=== PATIENT | female | born 1980 | race Caucasian/White ===

== ENCOUNTER 2017-07-29 19:26 | Emergency (ER) | payer OTHER, MEDICAID ==
[2017-07-29 19:43] VITALS: BP 165/100; PULSE 97; RESP 18; TEMP 98.1; O2SAT 96
[2017-07-29] MEDS ORDERED: TDAP ADULT 0.5 ML INJ (BOOSTRIX) IM ONE (19:43)
[2017-07-29] MEDS ORDERED: IBUPROFEN 600 MG TAB PO ONE (19:48)
--- NOTE | 2017-07-29 20:03 | EDPHY ---
H & P Time Seen by Provider: 07/29/17 19:30 HPI/ROS: CHIEF COMPLAINT: Dog bite HISTORY OF PRESENT ILLNESS: Patient states she owns a Rottweiler that attempted to go after her son. She was bit multiple places to both upper extremities around 630 this evening. Unknown last tetanus. Complaining of pain and bruising to left forearm as well as multiple puncture wounds and abrasions. Also with old wound to bridge of nose that she sustained yesterday verses a board. No other complaints. Review of systems otherwise negative except for what is mentioned in HPI. General Appearance: Alert, no distress. Eyes: Pupils equal and round, extraocular motions intact. Abrasion across the bridge of nose. ENT, Mouth: Atraumatic, normal dentition. Respiratory: No respiratory distress, lungs are clear to auscultation. Cardiovascular: Regular rate and rhythm. Gastrointestinal: Abdomen is soft and nontender, no masses, bowel sounds normal. Neurological: Awake alert, cranial nerves intact Skin: Warm and dry, no rashes. Musculoskeletal: Neck is supple nontender. Normal movement, sensation all 4 extremities. Left forearm with puncture wound over ulnar aspect, several abrasions to hand and index finger with puncture wound to medial volar aspect of the hand. Distal sensation and movement intact. Normal strength in medial radial ulnar distribution. Right upper extremity with puncture wound over wrist as well as several abrasions. Distal CMS intact. Psychiatric: Patient is oriented X 3, there is no agitation. Medical/surgical history: Noncontributory Social history: Lives with family Smoking Status: Current some day smoker Constitutional: Initial Vital Signs Temperature (C) 36.7 C 07/29/17 19:40 Heart Rate 97 07/29/17 19:40 Respiratory Rate 18 07/29/17 19:40 Blood Pressure 165/100 H 07/29/17 19:40 O2 Sat (%) 96 07/29/17 19:40 O2 Delivery Mode Room Air Allergies/Adverse Reactions: codeine Allergy (Intermediate, Verified 07/29/17 19:40) Vomiting Home Medications: Medication Instructions Recorded Adderall Xr 10 mg Capsule 03/10/16 Cymbalta 03/10/16 Ibuprofen [Motrin (*)] 600 mg PO Q6 PRN #30 tab 03/10/16 Amoxicillin/Clavulanate Pot 875 mg PO BID #14 tab 07/29/17 [Augmentin 875 MG TAB (*)] Medical Decision Making - Diagnostics Imaging Results: Imaging Impressions Forearm X-Ray 07/29/17 19:46 Impression: No acute osseous findings. Wrist X-Ray 07/29/17 19:46 Impression: Soft tissue irregularity with no acute osseous findings. Imaging: I viewed and interpreted images myself ED Course/Re-evaluation: Tetanus vaccination given, wounds cleaned and dressed. Differential Diagnosis: Differentia diagnosis includes but is not limited to fracture, dislocation, neurovascular injury, laceration, abrasion, foreign body. After evaluation no foreign body or fracture noted. Wounds will be left open to heal by secondary intention. Prescription for Augmentin written for prophylaxis. Call made to animal Control however when they tried to contact patient they discovered that the address and phone number patient gave to admissions is incorrect. - Data Points Medications Given: Discontinued Medications Amoxicillin/Clavulanate Potassium (Augmentin 875mg) 875 mg PO EDNOW ONE PRN Reason: Protocol Stop: 07/29/17 20:16 Last Admin: 07/29/17 20:20 Dose: 875 mg Diphtheria/Tetanus/Acell Pertussis (Boostrix) 0.5 ml IM .ONCE ONE Stop: 07/29/17 19:44 Last Admin: 07/29/17 20:03 Dose: 0.5 ml Ibuprofen (Motrin) 600 mg PO EDNOW ONE Stop: 07/29/17 19:49 Last Admin: 07/29/17 20:02 Dose: 600 mg Departure - Departure Disposition: Home, Routine, Self-Care Clinical Impression: Dog bite of arm Qualifiers: Encounter type: initial encounter Laterality: unspecified laterality Qualified Code(s): S41.159A - Open bite of unspecified upper arm, initial encounter Condition: Good Instructions: Animal Bite (ED) Additional Instructions: Keep wounds clean, wash daily, use antibacterial ointment and dressings to keep covered. Start antibiotics as prescribed. Return to the emergency department for any concerns of infection. Referrals: Reymundo Walker DO [Primary Care Provider] - As per Instructions Prescriptions: Amoxicillin/Clavulanate Pot [Augmentin 875 MG TAB (*)] 875 mg PO BID #14 tab
[2017-07-29] MEDS ORDERED: AMOXICILLIN/CLAVULANATE POT 875/125 MG TAB PO ONE (20:15)
== END 2017-07-29 20:32 | disposition home or self-care (01) ==
LOC: CED 19:26
DX: S41.151A Open bite of right upper arm, initial encounter (principal); S41.152A Open bite of left upper arm, initial encounter; Z23 Encounter for immunization; W54.0XXA Bitten by dog, initial encounter
CPT/HCPCS: 73090-PO; 73100-PO

== ENCOUNTER → 2017-07-31 | Outpatient (CLI) | payer OTHER, MEDICAID | LOC: BHFA 14:00 | PROVIDERS: ATTEND Internal Medicine | DX: R55 Syncope and collapse (principal) ==